=== PATIENT | male | born 1980 | race African-American/Black ===

== ENCOUNTER 2019-10-23 19:32 | Emergency (ER) | payer SELFPAY ==
[~2019-10-23] VITALS: Ht 180.3 cm; Wt 113.4 kg
[2019-10-23 19:33] VITALS: BP 152/99; Ht 180.3 cm; Wt 113.4 kg
== END 2019-10-23 20:23 | disposition home or self-care (01) ==
LOC: ED 19:32
DX: B34.9 Viral infection, unspecified (principal); Z20.828 Contact with and (suspected) exposure to other viral communicable diseases
CPT/HCPCS: U0003-CS